=== PATIENT | female | born 2000 | race Caucasian/White ===

== ENCOUNTER 2018-02-14 14:35 | Emergency (ER) | payer OTHER ==
[~2018-02-14] VITALS: Ht 157.5 cm; Wt 63.1 kg
[2018-02-14 14:59] LABS: HEMATOCRIT 47.8 % (36.0-46.0); HEMOGLOBIN 16.5 G/DL (11.9-15.5); MCH 32.4 PG (29.0-34.0); MCHC 34.5 G/DL (30.0-36.0); MCV 93.9 FL (83-99); PLATELET COUNT 325 K/uL (156-360); RBC DIS.WIDTH-CV 12.1 % (11.8-14.6); RBC DIS.WIDTH-SD 42.5 % (39-53); RED BLOOD COUNT 5.09 M/uL (3.80-5.20); WHITE BLOOD COUNT 9.2 K/uL (4.1-10.2)
[2018-02-14 15:02] LABS: APPEARANCE CLOUDY ((CLEAR)); BILIRUBIN NEGATIVE; BLOOD LARGE; COLOR AMBER ((YELLOW)); GLUCOSE (STRIP) NEGATIVE; KETONES NEGATIVE; LEUKOCYTES NEGATIVE; NITRITE NEGATIVE; PROTEIN (STRIP) 100; SPECIFIC GRAVITY 1.025 (1.000-1.030)
[2018-02-14 15:06] LABS: ALBUMIN 4.4 g/dL (3.2-4.8); CHLORIDE 104 mEq/L (99-109); SODIUM 140 mEq/L (136-147)
[2018-02-14 15:09] LABS: GLUCOSE 80 mg/dL (70-99); TOTAL PROTEIN 7.4 g/dL (6.4-8.3)
[2018-02-14 15:11] LABS: TOTAL BILIRUBIN 0.7 mg/dL (0.0-1.0)
[2018-02-14 15:12] LABS: ALKALINE PHOSPHATASE 105 IU/L (3-129); CREATININE 0.8 mg/dL (0.6-1.3)
[2018-02-14 15:13] LABS: UREA NITROGEN (BUN) 7 mg/dL (9-23)
[2018-02-14 15:14] LABS: AST (GOT) 20 IU/L (2-34)
[2018-02-14 15:15] LABS: ALT (GPT) 13 IU/L (3-49)
[2018-02-14 15:21] LABS: QUANTITATIVE HCG < 4.0 MIU/ML
[2018-02-14 15:23] LABS: GFR ESTIMATE (CALCULATED) > 59 mL/min/
[2018-02-14 15:23] LABS: EPITHELIAL CELLS 3+ /HPF; RED BLOOD CELLS 30-40 /HPF (0-5); WHITE BLOOD CELLS NONE SEEN /HPF (0-5)
[2018-02-14 15:24] LABS: BACTERIA 2+ /HPF; MUCUS 1+ /LPF; UCUL ADDED? YES
[2018-02-14 16:01] VITALS: BP 131/79
== END 2018-02-14 16:00 | disposition left against medical advice (07) ==
LOC: EME 14:35
PROVIDERS: Physician Assistant
DX: N93.9 Abnormal uterine and vaginal bleeding, unspecified (principal); F17.200 Nicotine dependence, unspecified, uncomplicated; Z53.20 Procedure and treatment not carried out because of patient's decision for unspecified reasons
CPT/HCPCS: 80053; 81003; 84702; 85027; 87086; 99281; 99284